=== PATIENT | male | born 1985 | race African-American/Black ===

== ENCOUNTER → 2017-08-01 | Outpatient (CLI) | payer BC ==
[~2017-08-01] MED LIST: GADOBUTROL 10 MMOL/10 ML PFS ONE
== END | disposition home or self-care (01) ==
LOC: CFH 08:37
PROVIDERS: ATTEND Registered Nurse
DX: S06.2X9S Diffuse traumatic brain injury with loss of consciousness of unspecified duration, sequela (principal); X58.XXXS Exposure to other specified factors, sequela
CPT/HCPCS: 70553; A9585